=== PATIENT | male | born 2000 | race Caucasian/White ===

== ENCOUNTER 2022-04-25 17:12 | Emergency (ER) | payer OTHER ==
[2022-04-25 17:18] VITALS: BP 151/94
[2022-04-25 17:33] LABS: BASOPHILS % (AUTO) 0.7 %; EOSINOPHILS # (AUTO) 0.3 10^3/uL (0.0-0.7); EOSINOPHILS % (AUTO) 4.3 %; HCT - HEMATOCRIT 42.8 % (42.0-52.0); HGB - HEMOGLOBIN 13.6 g/dL (14.0-18.0); LYMPHOCYTES # (AUTO) 2.6 10^3/uL (1.5-3.5); LYMPHOCYTES % (AUTO) 42.1 %; MEAN CORPUSCULAR HGB CONC 31.8 g/dL (32.0-36.0); MEAN CORPUSCULAR VOLUME 91.3 fL (80.0-94.0); MEAN PLATELET VOLUME 9.1 fL (7.4-11.4); MONOCYTES # (AUTO) 0.5 10^3/uL (0.0-1.0); MONOCYTES % (AUTO) 7.6 %; NEUTROPHILS # (AUTO) 2.7 10^3/uL (1.5-6.6); NEUTROPHILS % (AUTO) 45.3 %; PLT - PLATELET COUNT 347 10^3/uL (130-450); RED BLOOD COUNT 4.69 10^6/uL (4.70-6.10); WHITE BLOOD COUNT 6.1 x10^3/uL (4.8-10.8)
[2022-04-25 17:34] LABS: BILIRUBIN,URINE NEGATIVE (NEGATIVE); GLUCOSE, URINE (UA) NEGATIVE (NEGATIVE); KETONES,URINE (UA) NEGATIVE (NEGATIVE); LEUKOCYTE ESTERASE, URINE NEGATIVE (NEGATIVE); NITRITE,URINE NEGATIVE (NEGATIVE); OCCULT BLOOD,URINE NEGATIVE (NEGATIVE); PROTEIN,URINE NEGATIVE (NEGATIVE); UROBILINOGEN,URINE 0.2 (NORMAL) E.U./dL (NORMAL)
[2022-04-25 17:37] LABS: CLARITY,URINE CLEAR (CLEAR)
[2022-04-25 17:45] LABS: ALBUMIN 4.4 g/dL (3.2-5.5); ALBUMIN/GLOBULIN RATIO 1.3 (1.0-2.2); BILIRUBIN,TOTAL 0.6 mg/dL (0.2-1.0); CALCIUM 9.3 mg/dL (8.5-10.3); CREATININE 1.2 mg/dL (0.6-1.2); POTASSIUM 4.6 mmol/L (3.5-5.0); TOTAL PROTEIN 7.9 g/dL (6.7-8.2)
--- NOTE | 2022-04-25 20:22 | ED Physician Documentation ---
PD HPI ABD PAIN - Stated complaint Stated Complaint: ABDOMINAL PX - Chief complaint Chief Complaint: Abd Pain - History obtained from History obtained from: Patient - Additional information Additional information: Patient is a 21-year-old male with no significant past medical history presenting for evaluation of concerns for hernia that he noticed about 7 hours ago. Patient reported feeling a small bulge right above him his umbilicus And having some discomfort when doing exercises at the gym earlier. He no longer feels the bulge but was concerned about having a possible incarcerated hernia.He denies nausea, vomiting, difficulties with bowel movements, abnormal urination. He denies fever. He has had a normal appetite. He denies history of previous abdominal surgeries.He currently only reports noticing any discomfort if he crosses his arms together across his body. Review of Systems Constitutional: denies: Fever Nose: denies: Congestion Cardiac: denies: Chest pain / pressure Respiratory: denies: Dyspnea GI: denies: Vomiting, Constipation : denies: Dysuria Musculoskeletal: denies: Back pain Neurologic: denies: Headache PD PAST MEDICAL HISTORY - Allergies Allergies/Adverse Reactions: Allergies Allergy/AdvReac Type Severity Reaction Status Date / Time diphenhydramine Allergy Hallucinati Verified 04/25/22 17:18 [From Benadryl] ons PD ED PE NORMAL - General General: Alert and oriented X 3, No acute distress, Well developed/nourished - HEENT HEENT: Atraumatic, Moist mucous membranes, Pharynx benign - Neck Neck: Supple, no meningeal sign - Cardiac Cardiac: RRR, No murmur - Respiratory Respiratory: No respiratory distress, Clear bilaterally - Abdomen Abdomen: Normal bowel sounds, Soft, Non tender, Non distended, Other (No mass, no hernia, no rebound, no guarding; pt examined standing/sitting/and supine with no hernia palpated) - Derm Derm: Warm and dry - Extremities Extremities: No edema Results - Vitals Vitals: Vital Signs - 24 hr 04/25/22 17:16 Temperature 36.3 C L Heart Rate 54 L Respiratory 14 Rate Blood Pressure 151/94 H O2 Saturation 100 Oxygen O2 Source Room air - Labs Labs: Laboratory Tests 04/25/22 04/25/22 04/25/22 17:24 17:27 17:27 WBC 6.1 RBC 4.69 L Hgb 13.6 L Hct 42.8 MCV 91.3 MCH 29.0 MCHC 31.8 L RDW 15.0 Plt Count 347 MPV 9.1 Neut # (Auto) 2.7 Lymph # (Auto) 2.6 [place] # (Auto) 0.5 Eos # (Auto) 0.3 Baso # (Auto) 0.0 Absolute Nucleated RBC 0.00 Nucleated RBC % 0.0 Sodium 136 Potassium 4.6 Chloride 102 Carbon Dioxide 30 Anion Gap 4.0 L BUN 13 Creatinine 1.2 Estimated GFR (MDRD) 78 L Glucose 88 Calcium 9.3 Total Bilirubin 0.6 AST 49 H ALT 20 Alkaline Phosphatase 149 H Total Protein 7.9 Albumin 4.4 Globulin 3.5 Albumin/Globulin Ratio 1.3 Lipase 35 Urine Color YELLOW Urine Clarity CLEAR Urine pH 8.0 H Ur Specific [place] 1.010 Urine Protein NEGATIVE Urine Glucose (UA) NEGATIVE Urine Ketones NEGATIVE Urine Occult Blood NEGATIVE Urine Nitrite NEGATIVE Urine Bilirubin NEGATIVE Urine Urobilinogen 0.2 (NORMAL) Ur Leukocyte Esterase NEGATIVE Ur Microscopic Review NOT INDICATED Urine Culture Comments NOT INDICATED PD MEDICAL DECISION MAKING - ED course Complexity details: reviewed results, d/w patient ED course: Patient is a 21-year-old male presenting for evaluation with concerns for an abdominal hernia. His labs are reassuring and his vital signs are stable. His abdominal exam is benign with no tenderness and no palpable hernia Which I checked while patient was positioned supine, sitting and standing.Patient was counseled on concerning symptoms to return for. Departure - Departure Disposition: 01 Home, Self Care Clinical Impression: Periumbilical abdominal pain Condition: Stable Instructions: ED Abdominal Pain Unkn Cause Male Comments: At this time the exact cause of your abdominal pain from earlier today is unclear as it appears to be improved. Your labs and urine tests are reassuring. On your exam I do not see signs of a hernia. You may have Noticed a hernia earlier But at this time it appears to be reduced and is not causing a probl em.If you continue to notice any symptoms, particularly when straining such as with bowel movements or when lifting weights then please have close follow-up. If you have any worsening pain, notice any abnormal swelling/bulges to the abdomen, have vomiting or any concerns please return to the ER. Discharge Date/Time: 04/25/22 20:56
== END 2022-04-25 20:56 | disposition home or self-care (01) ==
LOC: ED 17:12
DX: R10.33 Periumbilical pain (principal)
CPT/HCPCS: 36415; 80053; 81001; 81003; 83690; 85025; 87086; 99281; 99283